=== PATIENT | female | born 1980 | race Caucasian/White ===

== ENCOUNTER → 2017-07-16 | Outpatient (CLI) | payer OTHER ==
[~2017-07-16] MED LIST: BARIUM SULFATE 176 GM BTL PO ONE; BARIUM SULFATE 340 GM POWD ONE
--- NOTE | 2017-07-16 14:16 | RADIOLOGY IMAGING REPORT ---
FACILITY: [facility] PATIENT NAME: Caridad Draper : 1980 MR: [id number] V: [id number] EXAM DATE: ORDERING PHYSICIAN: BRENDA LO TECHNOLOGIST: Location: [facility] Patient: Caridad Draper : 1980 Visit/Account:[id number] Date of Sevice: 07/16/2017 ESOPHAGRAM Indication: dysphagia, suspect schatskis ring Comparison: None. Fluoroscopy time: Radiation dose: DAP 325.65 uGym2; AK 6.6 mGy minutes. Findings: A biphasic esophagram was performed, with thin and thick barium. Normal peristalsis is se en to the esophagus. The mucosa is smooth without evidence of ulcer mass or stricture. There is no evidence of gastroesophageal reflux. IMPRESSION: Normal esophagram. Report Dictated By: Teodoro Puentes at 07/16/2017 2:09 PM Report E-Signed By: Teodoro Puentes at 07/16/2017 2:10 PM WSN:[id number]
== END ==
LOC: RAD 02:08
PROVIDERS: ATTEND Otolaryngology
DX: R13.10 Dysphagia, unspecified (principal)
CPT/HCPCS: 74220